=== PATIENT | female | born 1990 | race Caucasian/White ===

== ENCOUNTER 2018-10-03 08:08 | Emergency (ER) | payer OTHER ==
[2018-10-03 08:19] VITALS: BP 138/88
[2018-10-03] MEDS ORDERED: PREDNISONE 20 MG TABLET PO ONE (09:20)
--- NOTE | 2018-10-03 09:25 | ER Document Report ---
ED Skin Rash/Insect Bite/Abscs - General Chief Complaint: Skin Problem Stated Complaint: RASH Time Seen by Provider: 10/03/18 08:55 Mode of Arrival: Ambulatory Information source: Patient - HPI Patient complains to provider of: Skin rash/lesion Notes: Patient here with complaints of rash. The patient was working on the side of the road yesterday clearing brush. Last night she started to get develop a itchy rash to the bilateral forearms. When she woke up this morning rash seemed to get worse and she had an itchy rash to the right side of her neck. No difficulty breathing or swallowing. No lip swelling or tongue swelling. No chest pain or shortness of breath. No nausea, vomiting, diarrhea. No abdominal pain. No blurred or loss vision. No numbness, tingling, weakness. Rash is itchy. There is no pain. No other complaints. - Related Data Allergies/Adverse Reactions: No Known Allergies Allergy (Verified 10/03/18 08:19) Past Medical History - Social History Smoking Status: Never Smoker Chew tobacco use (# tins/day): No Frequency of alcohol use: None Drug Abuse: None Family History: Reviewed & Not Pertinent Patient has suicidal ideation: No Patient has homicidal ideation: No Renal/ Medical History: Denies: Hx Peritoneal Dialysis Review of Systems - Review of Systems -: Yes All other systems reviewed and negative Physical Exam - Vital signs Vitals: Temp Pulse Resp BP Pulse Ox 98.4 F 83 18 138/88 H 100 10/03/18 08:18 10/03/18 08:18 10/03/18 08:18 10/03/18 08:18 10/03/18 08:18 - Notes Notes: GENERAL: alert, cooperative, nontoxic, no distress. HEAD: normocephalic, atraumatic EYES: conjunctiva pink without discharge, no external redness or swelling. EARS: no external swelling, no external redness NOSE: atraumatic, no external swelling MOUTH/THROAT: mucous membranes moist and pink. No lip or tongue swelling. Airway patent. NECK: soft, supple, full range of motion, no meningismus. CHEST: no distress, lungs clear and equal throughout. No wheezing, rales, rhonchi. No stridor. CARDIAC: regular rate and rhythm, no murmur, normal capillary refill, normal pulses. BACK: full range of motion, no CVA tenderness. EXTREMITIES: full range of motion of all extremities. No redness, no swelling. NEURO: alert and oriented 3, no focal deficits, full range of motion of all extremities. PYSCH: appropriate mood, affect. Patient is cooperative. SKIN: pink, warm, dry, red base, vesicular rash to the bilateral forearms right lateral neck. No tenderness. No green drainage. Course - Re-evaluation Re-evalutation: 10/03/18 09:23 Patient nontoxic-appearing with stable vitals. Patient here with complaints of itchy rash to the bilateral forearms and right neck after pulling brush yesterday. Rash is consistent with contact dermatitis. No airway involvement. She is in no distress. No signs of anaphylaxis. Patient states that she took Benadryl last night. No history of diabetes. Patient will be given a dose of prednisone here in emergency department will be discharged home on a prednisone taper. She is instructed to take a nondrowsy antihistamine during the day and then Benadryl at night to help with itching. She was also instructed to try either IV dry or calamine lotion topically. Follow-up if not improving the next 3 to 5 days, sooner for any worsening rash, difficulty breathing or swelling, persistent vomiting, fever, pain, green drainage, or for any further concerns. The patient's emergency department workup and current diagnosis were explained to the patient and or family. Follow-up instructions were provided. Medications if prescribed were discussed. Instructions for when to return to the emergency department including specific worrisome symptoms were discussed with the patient and/or family. - Vital Signs Vital signs: Temp Pulse Resp BP Pulse Ox 98.4 F 83 18 138/88 H 100 10/03/18 08:18 10/03/18 08:18 10/03/18 08:18 10/03/18 08:18 10/03/18 08:18 Discharge - Discharge Clinical Impression: Contact dermatitis Qualifiers: Contact dermatitis type: allergic Contact dermatitis trigger: non-food plants Qualified Code(s): L23.7 - Allergic contact dermatitis due to plants, except food Condition: Stable Disposition: HOME, SELF-CARE Instructions: Contact Dermatitis ([facility]) Additional Instructions: Take medications as prescribed. Take a nondrowsy antihistamine such as Claritin, Zyrtec or Sharonda during the day and then Benadryl at night to help with itching. Apply either IV dry or calamine lotion to the rash. Follow-up if not improving in the next 3 to 5 days, sooner for worsening rash, high fever, pain, green drainage, difficult to breathing or swelling, persistent vomiting, or for any further concerns. Prescriptions: Prednisone 5 mg PO ASDIR 18 Days [email or web address] Forms: Elevated Blood Pressure, Smoking Cessation Education Referrals: [facility] [Provider Group] - Follow up as needed
== END 2018-10-03 09:38 | disposition home or self-care (01) ==
LOC: ER 08:08
DX: L23.7 Allergic contact dermatitis due to plants, except food (principal)
CPT/HCPCS: 99282; J7512